=== PATIENT | female | born 1940 | race Caucasian/White ===

== ENCOUNTER 2020-05-03 10:45 | Day surgery (SDC) | payer MEDICARE, OTHER, MEDICAID ==
[~2020-05-03] VITALS: Ht 172.7 cm; Wt 93.6 kg
[~2020-05-03 10:45] MED LIST: ASPIR 8181 MG PO; ASPIRIN EC81 MG PO; ASPIRIN325 MG PO; B12 ACTIVE1000 MCG PO; CALCIUM 600 +1 EAC3 PO; CINNAMON500 MG PO; ELIQUIS5 MG PO; FELDENE20 MG PO; FENOFIBRATE160 MG PO; FOLTABS 800 TA1 EACH PO; FORMULA E400 UNIT PO; LOSARTAN POTASS50 MG PO; LOSARTAN-HCTZ1 EACH PO; METFORMIN HCL500 MG PO; METOPROLOL SUC100 MG PO; METOPROLOL SUCC50 MG; METOPROLOL SUCC50 MG PO; MIRALAX17 GM PO; MULTI-DAY VITA1 EACH PO; NORCO 5-325 TA1 EACH PO; NORCO 7.5-3251 EACH PO; OXYCODONE HCL5 MG PO; VICODIN 5-5001 EACH PO; VITAMIN C1000 MG PO; XARELTO10 MG PO
[2020-05-03] MEDS ORDERED: LEVOTHYROXINE75 MC1 PO (11:12)
--- NOTE | 2020-05-03 13:48 | NUR ---
1345: PT ARRIVES TO DS RM 4 FROM OR AWAKE AND ALERT. PT ONLY RECEIVED LOCAL ANESTHETIC PER REQUEST. PT DENIES ANY PAIN. PER REPORT PT HAS GAUZE AND SILK TAPE IN PLACE. NO DRAINAGE PRESENT. PT PROVIDED WATER AND CRACKERS. CALL LIGHT WITHIN REACH.
--- NOTE | 2020-05-03 14:00 | NUR ---
1400: PT TOLERATES PO WELL. PT DRESSES SELF AND AMBULATES WITH STEADY GAIT TO BATHROOM, ABLE TO VOID QS WITH NO PROBLEMS. PT FAMILY IN ROOM AT THIS TIME, DC INSTRUCTIONS PRESENTED TO PT AND DAUGHTER IN LAW. PT DC FROM DS RM 4 VIA WC TO PERSONAL VEHICLE DRIVEN BY FAMILY TO HOME.
--- NOTE | 2020-05-03 17:38 | OR ---
[facility] [address], [place] [address] Signed DATE OF OPERATION: 05/03/2020 SURGEON: Anthony Salazar MD PREOPERATIVE DIAGNOSIS: Epidermal cyst, right posterior shoulder blade. POSTOPERATIVE DIAGNOSIS: Epidermal cyst, right posterior shoulder blade. PROCEDURE: Excision of dermal cyst (1 x 4 cm). ESTIMATED BLOOD LOSS: None. 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 She happens to be diabetic. She noticed an area over the right next to the medial side of her shoulder blade. The clamp was quite swollen, tender and red. She had her daughter squeezed pus out of the area and she thinks some sebum came out as well. She had been to her primary care provider. She was given Keflex. The area was improving and she was asked to see me as a local general surgeon. I explained to Archie would have to excise the entire cyst and cyst wall to have it removed. We initially planned to give her some sedation here in the hospital. She had two separate holes to her skin and it was going to be a fairly sizable area. However, she declined IV sedation and wanted just local anesthetic. She told me after both hips were replaced, she never took narcotics or even Tylenol. She understands the nature of the surgery. She understands there is risk including, but not limited to bleeding, infection, scarring, change in contour of the skin as well as recurrent cyst in the same or other locations. She had expressed understanding and wished to proceed. DESCRIPTION OF PROCEDURE: I met with Archie and her daughter in our preop area. We all identified the cyst over the right shoulder. It was markedly improved. We marked that area appropriately. After this, Archie was taken to the operating room and placed in the prone position with appropriate padding and monitoring. She did not have an IV because it was a local anesthetic. Therefore, she did not get preoperative antibiotic. She was prepped and draped in the usual sterile fashion. SCDs were utilized. She was prepped and draped in the usual sterile fashion. We injected copious amounts of local anesthetic in and Electronically Signed By: ANTHONY SALAZAR MD 05/03/20 1738 PATIENT NAME: ARCHIE MIDDLETON OPERATIVE REPORT DATE OF : 42 REPORT #: [id number] PHYSICIAN: ANTHONY SALAZAR MD PCP: VICKI ZEPEDA MD REPORT IS CONFIDENTIAL AND NOT TO BE RELEASED WITHOUT AUTHORIZATION [facility] [address], [place] [address] Signed around underneath the lesion. We used an oblique incision and developed it sharply with a #15 blade knife. We went completely around the cyst and cyst wall with the help of our cautery. The surrounding fat was quite healthy. The entire specimen was passed off the field. We closed the dermis with interrupted 3-0 subcuticular Monocryl sutures. The skin edges were reapproximated with a running 5-0 fast absorbing plain gut suture. Dry gauze and tape were applied. Once again, Archie had declined narcotics and told me she probably would need to take Tylenol. She actually tolerated the procedure quite well. She was transferred over to her hospital bed and taken into recovery room in stable condition. Anthony Salazar MD ALB/MODL /[id number] cc: MD Anthony Mendieta MD Copies: VICKI ZEPEDA MD, ANDREW L MD ~ Electronically Signed By: ANTHONY SALAZAR MD 05/03/20 1738 PATIENT NAME: ARCHIE MIDDLETON OPERATIVE REPORT DATE OF : 42 REPORT #: [id number] PHYSICIAN: ANTHONY SALAZAR MD PCP: VICKI ZEPEDA MD REPORT IS CONFIDENTIAL AND NOT TO BE RELEASED WITHOUT AUTHORIZATION
== END 2020-05-03 14:15 | disposition home or self-care (01) ==
LOC: DS 10:45
PROVIDERS: ATTEND Colon & Rectal Surgery
PROC: 0H9BXZX Drainage of Right Upper Arm Skin, External Approach, Diagnostic (ICD-10-PCS; principal; 2020-05-03 11:45)
DX: L72.0 Epidermal cyst (principal); I48.91 Unspecified atrial fibrillation; E11.9 Type 2 diabetes mellitus without complications; I10 Essential (primary) hypertension; E78.5 Hyperlipidemia, unspecified; E05.20 Thyrotoxicosis with toxic multinodular goiter without thyrotoxic crisis or storm; M15.9 Polyosteoarthritis, unspecified; E66.9 Obesity, unspecified; M81.0 Age-related osteoporosis without current pathological fracture; Z68.33 Body mass index [BMI] 33.0-33.9, adult; Z79.01 Long term (current) use of anticoagulants; Z79.84 Long term (current) use of oral hypoglycemic drugs; Z86.19 Personal history of other infectious and parasitic diseases; Z86.73 Personal history of transient ischemic attack (TIA), and cerebral infarction without residual deficits; Z88.6 Allergy status to analgesic agent; Z88.8 Allergy status to other drugs, medicaments and biological substances; Z96.643 Presence of artificial hip joint, bilateral; Z90.49 Acquired absence of other specified parts of digestive tract; Z89.421 Acquired absence of other right toe(s)